=== PATIENT | female | born 1990 | race Caucasian/White ===

== ENCOUNTER 2019-09-26 05:46 | Day surgery (SDC) | payer BC ==
[2019-09-26] VITALS (9 sets, daily range): BP systolic 116–140; BP diastolic 44–100; PULSE 96–112; TEMP 98.1–98.9
[~2019-09-26] VITALS: Ht 170.2 cm; Wt 93.2 kg
[~2019-09-26 05:46] MED LIST: BCP TD; NAPROSYN375 MG PO
[2019-09-26] MEDS ORDERED: HCTZ 25MG TAB25 MG PO (06:28)
[2019-09-26] MEDS ORDERED: LO-ZUMANDIMINE1 EACH PO (06:29)
[2019-09-26] MEDS ORDERED: MULTI VITAMINS1 TAB PO (06:29)
[2019-09-26] MEDS ORDERED: MASON NATURAL1200 MG PO (06:30)
[2019-09-26] MEDS ORDERED: NORCO 325 MG-51 TAB PO (08:36)
--- NOTE | 2019-09-26 09:15 | NUR ---
Patient returns to room 8 per cart from PACU accompanied by Kristal [employer] and is awake and alert. Room air sats 99% and Temp 98.8. Bandaids on abdomen clean and dry x3. IV fluids infusing at TKO and site is free of redness. States that she is feeling slightly anxious. Lights dimmed and encouraged to sleep. Mother in room and call light in reach. Siderails up x2.
--- NOTE | 2019-09-26 09:30 | NUR ---
Patient resting with eyes closed when not disturbed.
--- NOTE | 2019-09-26 09:45 | NUR ---
Taking ice chips. Denies pain or nausea. Mother remains in room.
--- NOTE | 2019-09-26 10:00 | NUR ---
Taking ice chips and resting.
--- NOTE | 2019-09-26 10:30 | NUR ---
Resting with eyes closed and denies need for pain medication. Tolerates ice chips.
--- NOTE | 2019-09-26 11:00 | NUR ---
Eating applesauce and drinking water. Denies need for pain medication. Mother in room.
--- NOTE | 2019-09-26 12:00 | NUR ---
Assisted up to the bathroom and gait is steady. Able to void and returns to room. Continues to deny the need for pain medication and continues to deny nausea. IV needle discontinued and site is free of redness.
--- NOTE | 2019-09-26 12:15 | NUR ---
Patient dresses self. Given dismissal instructions and voices understanding of these. Provided script for [place]. Provided office number for questions and concerns.
--- NOTE | 2019-09-26 12:23 | NUR ---
Patient dismissed to home driven by mother and taken to the front door per wheelchair and assisted into vehicle with instructions in hand.
== END 2019-09-26 12:23 | disposition home or self-care (01) ==
LOC: SDCO 05:46
DX: K80.10 Calculus of gallbladder with chronic cholecystitis without obstruction (principal); I10 Essential (primary) hypertension; F41.9 Anxiety disorder, unspecified; Z83.3 Family history of diabetes mellitus; Z82.49 Family history of ischemic heart disease and other diseases of the circulatory system; Z79.899 Other long term (current) drug therapy
CPT/HCPCS: J0690; J1100; J1885; J2250; J2405; J2550; J2704; J3010; J7120